=== PATIENT | male | born 1950 | race African-American/Black ===

== ENCOUNTER 2020-09-07 13:14 | Emergency (ER) | payer MEDICARE ==
--- NOTE | 2020-09-07 14:03 | RAD ---
Exam: Left toes 2 views HISTORY: Pain. Injury. FINDINGS: Based on images provided, there is a possible nondisplaced fracture involving the proximal aspect of the proximal phalanx of the fourth digit. Possible intra-articular extension. 3 views limits evaluation. Mild loss of joint space height in the first interphalangeal joint space a nd first metatarsal phalangeal joint space. IMPRESSION: Possible nondisplaced fracture involving the proximal aspect of the proximal phalanx of t he fourth digit. Possible intra-articular extension.
[2020-09-07] MEDS ORDERED: predniSONE 20 MG TAB ONE (14:06)
== END 2020-09-07 14:33 | disposition home or self-care (01) ==
LOC: NAV ERS 13:14
DX: M10.9 Gout, unspecified (principal); E11.9 Type 2 diabetes mellitus without complications; E78.5 Hyperlipidemia, unspecified; E78.00 Pure hypercholesterolemia, unspecified; I10 Essential (primary) hypertension; Z87.891 Personal history of nicotine dependence; Z79.899 Other long term (current) drug therapy; Z79.4 Long term (current) use of insulin; Z79.82 Long term (current) use of aspirin
CPT/HCPCS: J7512